=== PATIENT | male | born 1965 | race Caucasian/White ===

== ENCOUNTER → 2023-12-02 | Outpatient (CLI) | payer OTHER, SELFPAY ==
[2023-12-02 07:35] LABS: Misc Send Out* See Sep Rpt
== END | disposition home or self-care (01) ==
LOC: COPL 07:15
PROVIDERS: PCP Family Medicine; Referring Provider Family Medicine; Visit Provider Family Medicine
DX: E11.65 Type 2 diabetes mellitus with hyperglycemia (principal)
CPT/HCPCS: 86337; 86341

== ENCOUNTER 2024-01-29 12:32 | Emergency (ER) | payer OTHER, SELFPAY ==
[2024-01-29 13:27] VITALS: BP 117/85; PULSE 105; RESP 17; TEMP 37.2; O2SAT 98; BMI 25.5
--- NOTE | 2024-01-29 13:31 | EDNOTE_ITS ---
ED Male Genitalurinary RME/HPI General Chief complaint: Urogenital-Male Stated complaint: CATHETER PAIN Time Seen by Provider: 01/29/24 12:38 Arrival date/time: 01/29/24 12:32 RME / HPI RME / HPI Narrative: 58-year-old male patient with significant history of BPH, awaiting prostate surgery, came in for evaluation regarding discomfort with Rosen catheter. Patient's been having discomfort for several days, described as dull ache, sever ity moderate. Patient told me that he is fully catheter give him discomfort sometimes urine also is leaking around the meatus. Denies any fever denies any other complaints no medications taken prior travel. Related Data Home Medications ?Medication ?Instructions ?Recorded ?Confirmed metformin 500 mg tablet 500 mg PO BID 02/22/19 03/01/19 Previous Rx's ?Medication ?Instructions ?Recorded docusate sodium 100 mg capsule 100 mg PO BID #40 caps 06/08/20 (DOK) hydrocodone 5 mg-acetaminophen 325 1 tab PO Q6HR PRN pain (scale 06/08/20 mg tablet score 7-10) #20 tabs ibuprofen 600 mg tablet 600 mg PO Q8H PRN pain (scale 06/08/20 score 4-6) #15 tabs diazepam 5 mg tablet (Valium) 5 mg PO BID PRN muscle spasm #7 01/13/21 tabs methylprednisolone 4 mg tablets in 4 mg PO .as directed #21 tabs 01/13/21 a dose pack (Medrol (Fabián)) naproxen 500 mg tablet 500 mg PO BID PRN pain #30 tabs 01/13/21 tamsulosin 0.4 mg capsule (Flomax) 0.4 mg PO QDAY #30 caps 11/17/23 cefuroxime axetil 500 mg tablet 500 mg PO BID #14 tabs 01/29/24 Allergies Allergy/AdvReac Type Severity Reaction Status Date / Time Penicillins Allergy Severe Rash Verified 11/23/23 15:09 Review of Systems Review of Systems Narrative Review of Systems: Review of system reviewed and within normal limits except mentioned in HPI ED Exam Narrative Physical exam: VITAL SIGNS: Reviewed. GENERAL APPEARANCE: Alert and interactive, follows commands, no acute distress, HEAD AND FACE: Non-traumatic. ENT: PERRL, pink conjunctivitis, eyelid no trauma, Mucous membrane moist. NECK: Supple, nontender, no nuchal rigidity. CHEST: No tenderness, no crepitus, no paradoxical movement, no retractions. LUNGS: Clear, well ventilated, symmetric, no rales, no wheezing, no ronchi, no stridor, good breath sounds bilaterally. HEART: Regular rate, regular rhythm, no murmur, no gallops. ABDOMEN: Soft, positive bowel sounds, nondistended, no guarding, nontender, no rebound, no masses, RECTAL: Deferred. GENITAL: Rosen catheter, intact, no urine noted on the meatus, tubing dirty looking with dark-colored urine., No redness or swelling on the penis. NEUROLOGICAL: Gross motor function intact sensory function intact, Appropriate for age. MUSCULOSKELETAL: low back nontender, full range of motion. EXTREMITIES: Nontender, full range of motion. SKIN: Color pink, dry, no rash, no lacerations, no abrasions, no contusions. LYMPHATICS: Deferred. Course Quality Measures none Orders Category Date Time Status Rosen to [place] Routine Care 01/29/24 13:30 Ordered UA, C/S IF [Urinalysis, C/S if Indicated] Stat Lab 01/29/24 13:56 Completed Urine Culture Stat Lab 01/29/24 13:56 Received Ibuprofen Tab [Motrin Tab] Med 01/29/24 13:30 Discontinued 800 mg PO X1 ONE cefTRIAXone [Rocephin] 1,000 mg Med 01/29/24 14:52 Discontinued Lidocaine 1% 20 ml [Xylocaine 1% 20 ML] 2.1 ml IM X1 Vital Signs Vital signs: Vital Signs Temperature 98.9 F 01/29/24 13:27 Pulse Rate 105 H 01/29/24 13:27 Respiratory Rate 17 01/29/24 13:27 Blood Pressure 117/85 H 01/29/24 13:27 Pulse Oximetry (%) 98 01/29/24 13:27 Oxygen Delivery Method Room Air 01/29/24 13:27 Urogenital - Male MDM Narrative MDM Narrative:: Rosen catheter was repositioned, and patient told me that the pain is totally gone. Urinalysis showed UTI. Patient received ceftriaxone IM. Patient data External records reviewed:: None Clinical information provided by:: none Social determinants that could affect healthcare access:: none Patient has the following chronic illnesses:: BPH How is presenting disease/condition affected by chronic disease/condition?: exacerbated by Evaluation data The following diagnostics were reviewed and interpreted by me:: lab results Lab and/or radiology exams considered but not ordered:: None Interpretation Summary: Urinalysis positive for UTI Medications / Prescriptions Medications or Prescriptions considered but not ordered:: None Medication administrations:: Medication Administration History Discontinued Medications Ceftriaxone Sodium 1,000 mg/ (Lidocaine HCl 2.1 ml) 0 mg IM X1 ONE Stop: 01/29/24 14:53 Ibuprofen (Ibuprofen Tab 400 Mg Tablet) 800 mg PO X1 ONE Stop: 01/29/24 13:31 Last Admin: 01/29/24 14:38 Dose: 800 mg Documented By: Ceftriaxone IM IM, Motrin Consultations Consultation(s) initiated? (list below): No Diagnosis Urogenital Male Differential Diagnosis: urinary tract infection, urethritis, prostatitis and acute retention of urine Most likely diagnosis given after review of the tests above:: Rosen catheter problem, UTI Admission Indicated Admission indicated?: not indicated Admission Request Was there a request for admission?: No Disposition Plan Disposition Plan: Discharge Discharge Attestation Discharge Attestation: The patient was given an opportunity to ask questions and understood the discharge instructions. Discharge instructions specifically effects, indications for sooner follow up or return to the emergency department, and the expected course of current diagnosis. Patient condition: Stable Discharge Plan Plan Patient Disposition: HOME (Self Care) Disposition Comment: stable Prescriptions/Referrals Prescriptions/Med Rec: New cefuroxime axetil 500 mg tablet 500 mg PO BID Qty: 14 0RF No Action metformin 500 mg tablet 500 mg PO BID hydrocodone-acetaminophen 5-325 mg Tablet 1 tab PO Q6HR MDD 4 PRN (Reason: pain (scale score 7-10)) Qty: 20 0RF docusate sodium [DOK] 100 mg Capsule 100 mg PO BID Qty: 40 0RF ibuprofen 600 mg tablet 600 mg PO Q8H PRN (Reason: pain (scale score 4-6)) Qty: 15 0RF methylprednisolone [Medrol (Fabián)] 4 mg tablets,dose pack 4 mg PO .as directed Qty: 21 0RF naproxen 500 mg tablet 500 mg PO BID PRN (Reason: pain) Qty: 30 0RF diazepam [Valium] 5 mg tablet 5 mg PO BID PRN (Reason: muscle spasm) Qty: 7 0RF tamsulosin [Flomax] 0.4 mg capsule 0.4 mg PO QDAY Qty: 30 1RF Referrals: No Primary/Family,Physician [Primary Care Provider] - In 1 week Problem List Clinical Impression: Urinary tract infection, Rosen catheter problem Patient/Caregiver Discharge Instructions Discharge Activity: activity as tolerated Education Materials: Understanding Urinary Tract ... Additional Instructions: Thank you for the opportunity for serving you today. You are stable for discharged . You are advised to: Follow-up with your PCP in 1 to 2 days Return to ED for worsening of symptoms Increase oral fluids Take medication as prescribed Print Language: Faroese Stand Alone Forms: Ailyn Award Info., Patient Portal Info Letter PA/BUSINESS SYSTEMS ARCHITECT Supervising Physician PA/BUSINESS SYSTEMS ARCHITECT Supervising Physician: MD Jayden
[2024-01-29 14:05] LABS: Collection Type, Urine Clean Catch; Squamous Epithelial Cell,Urine 0 /hpf (0-5)
[2024-01-29 14:30] LABS: Bacteria,Urine 1+; Bilirubin,Urine Negative (Negative); Blood,Urine 3+ (Negative); Clarity,Urine Cloudy (Clear/Hazy); Culture Indicated,Urine Yes; Glucose, Urine 1+ (Negative); Ketones,Urine Negative (Negative); Leukocyte Esterase,Urine Positive (Negative); Nitrite,Urine Positive (Negative); Protein,Urine 3+ (Neg - Trace); RBC,Urine 1541 /hpf (0-3); Specific Gravity,Urine 1.027 (1.001-1.035); Urobilinogen,Urine Negative mg/dL (0.0-1.0); WBC,Urine 20089 /hpf (0-5)
[2024-01-29 14:31] LABS: Color,Urine Lt Brown (Lt Yel-Yel)
[2024-01-29] MEDS: IBUPROFEN TAB 400 MG TABLET 800 MG PO (14:38)
[2024-01-29] MEDS: cefTRIAXone 1,000 MG, LIDOCAINE 1% 20 ML 2.1 ML IM (15:38)
== END 2024-01-29 16:08 | disposition home or self-care (01) ==
PROVIDERS: Nurse Practitioner Family; Emergency Provider Emergency Medicine
DX: T83.84XA Pain due to genitourinary prosthetic devices, implants and grafts, initial encounter (principal); N39.0 Urinary tract infection, site not specified; Y84.6 Urinary catheterization as the cause of abnormal reaction of the patient, or of later complication, without mention of misadventure at the time of the procedure
CPT/HCPCS: 81001; 87077; 87086; 87186; 96372; 99283; J0696; J3490; A9270

== ENCOUNTER → 2024-02-18 | Outpatient (CLI) | payer OTHER, SELFPAY ==
[2024-02-18 08:14] LABS: Collection Type, Urine Clean Catch; Squamous Epithelial Cell,Urine 0 /hpf (0-5)
[2024-02-18 08:34] LABS: Basophils % (Auto) 1 % (0-2.5); Eosinophils # (Auto) 0.1 Thou/mm3 (0.0-0.5); Eosinophils % (Auto) 2 % (0-10); Hematocrit 43.3 % (41.0-53.0); Immature Granulocytes % (Auto) 0 % (0-0); Immature Granulocytes Auto 0.02 Thou/mm3 (0.00-0.00); Lymphocytes # (Auto) 1.2 Thou/mm3 (1.0-4.8); Lymphocytes % (Auto) 19 % (10-50); Mean Corpuscular HGB Conc 34.6 g/dl (31.0-37.0); Mean Corpuscular Hemoglobin 28.5 pg (25.0-35.0); Mean Corpuscular Volume 82 fL (80-100); Monocytes # (Auto) 0.5 Thou/mm3 (0.0-0.8); Monocytes % (Auto) 7 % (0-12); Neutrophils # (Auto) 4.5 Thou/mm3 (1.8-7.7); Neutrophils % (Auto) 72 % (37-80); Nucleated Red Blood Cell % 0 /100 WBC (0); Platelet Count 225 Thou/mm3 (140-440); RDW Standard Deviation 37.2 fL (35.1-43.9); Red Blood Count 5.26 Miln/mm3 (4.50-5.90); White Blood Count 6.2 Thou/mm3 (3.8-10.6)
[2024-02-18 08:54] LABS: Alanine Aminotransferase 48 U/L (10-49); Albumin, Serum 4.1 gm/dL (3.4-4.8); Albumin/Globulin Ratio 1.6 (1.2-2.2); Alkaline Phosphatase 165 U/L (46-116); Anion Gap 7 (7-16); Aspartate Amino Transferase 19 U/L (0-34); BUN/Creatinine Ratio 18 Ratio (12-20); Bilirubin,Total 0.7 mg/dL (0.3-1.2); Blood Urea Nitrogen 18 mg/dL (9-23); Calcium 9.9 mg/dL (8.3-10.6); Calcium (Corrected) 9.9 mg/dL (8.5-10.1); Carbon Dioxide 29.6 mMol/L (20.0-31.0); Chloride 102 mMol/L (98-107); Globulin 2.5 gm/dL (2.3-3.5); Glucose 231 mg/dL (74-106); Osmolality,Calculated 286 (275-295); Potassium 4.6 mMol/L (3.4-5.1); Sodium 139 mMol/L (136-145); Total Protein 6.6 gm/dL (5.7-8.2); eGFR > 60 See Note
[2024-02-18 09:21] LABS: Bacteria,Urine 3+; Bilirubin,Urine Negative (Negative); Blood,Urine 3+ (Negative); Color,Urine Yellow (Lt Yel-Yel); Glucose, Urine 4+ (Negative); Ketones,Urine Negative (Negative); Leukocyte Esterase,Urine Positive (Negative); Nitrite,Urine Positive (Negative); Protein,Urine 1+ (Neg - Trace); RBC,Urine 257 /hpf (0-3); Specific Gravity,Urine 1.023 (1.001-1.035); Urobilinogen,Urine Negative mg/dL (0.0-1.0); WBC,Urine 2742 /hpf (0-5)
[2024-02-18 09:26] LABS: Clarity,Urine Cloudy (Clear/Hazy); Culture Indicated,Urine Yes
[2024-02-18 14:23] LABS: Glucose Estimated Average 258 mg/dL (80-131); Hemoglobin A1C 10.6 % Hgb (4.8-6.0)
== END | disposition home or self-care (01) ==
LOC: COPL 07:19
PROVIDERS: PCP Family Medicine; Referring Provider Family Medicine; Visit Provider Family Medicine
DX: E11.65 Type 2 diabetes mellitus with hyperglycemia (principal); N39.0 Urinary tract infection, site not specified; T83.511D Infection and inflammatory reaction due to indwelling urethral catheter, subsequent encounter
CPT/HCPCS: 36415; 80053; 81001; 83036; 85025; 87077; 87086; 87186

== ENCOUNTER 2024-02-21 13:04 | Emergency (ER) | payer OTHER, SELFPAY ==
[2024-02-21 14:11] VITALS: BP 125/81; PULSE 89; RESP 20; TEMP 36.9; O2SAT 97; BMI 26.4
--- NOTE | 2024-02-21 15:22 | PD.EDMALE ---
ED Male Genitalurinary RME/HPI General Chief complaint: Urogenital-Male Stated complaint: BURNING URINATION Time Seen by Provider: 02/21/24 15:03 Arrival date/time: 02/21/24 13:04 This is a 59-year-old male with a chronic Taylor catheter. Patient was diagnosed with a UTI approximately 3 weeks ago per patient. Patient states that no one changed his catheter last time. Patient states that his catheter johnson and need to be changed. Patient states that a couple days ago he had some cold sweats but no fever. Related Data Home Medications ?Medication ?Instructions ?Recorded ?Confirmed metformin 500 mg tablet 500 mg PO BID 02/22/19 03/01/19 Previous Rx's ?Medication ?Instructions ?Recorded docusate sodium 100 mg capsule 100 mg PO BID #40 caps 06/08/20 (DOK) hydrocodone 5 mg-acetaminophen 325 1 tab PO Q6HR PRN pain (scale 06/08/20 mg tablet score 7-10) #20 tabs ibuprofen 600 mg tablet 600 mg PO Q8H PRN pain (scale 06/08/20 score 4-6) #15 tabs diazepam 5 mg tablet (Valium) 5 mg PO BID PRN muscle spasm #7 01/13/21 tabs methylprednisolone 4 mg tablets in 4 mg PO .as directed #21 tabs 01/13/21 a dose pack (Medrol (Fabián)) naproxen 500 mg tablet 500 mg PO BID PRN pain #30 tabs 01/13/21 tamsulosin 0.4 mg capsule (Flomax) 0.4 mg PO QDAY #30 caps 11/17/23 cefuroxime axetil 500 mg tablet 500 mg PO BID #14 tabs 01/29/24 Allergies Allergy/AdvReac Type Severity Reaction Status Date / Time Penicillins Allergy Severe Rash Verified 02/22/24 12:54 Review of Systems Review of Systems Systems Reviewed: All systems reviewed, normal except as documented Past Medical History Past Medical History MUSCULOSKELETAL: Positive Fractures (Collar bone fx) ENDOCRINE: Positive Diabetes Mellitus Type 1 and Diabetes Mellitus Type 2 Social History SMOKING STATUS: Never smoker SUBSTANCE USE: does not use ED Exam General General appearance: Present alert and in no apparent distress Head Head exam: Present atraumatic Eye Eye exam: Present normal appearance, PERRL and EOMI ENT ENT exam: Present normal exam, normal oropharynx and mucous membranes moist Neck Neck exam: Present normal inspection, full ROM and trachea midline Chest Chest inspection: Present normal inspection and symmetric chest wall rise Respiratory Respiratory exam: Present other (breathing even and unlabored ) Cardiovascular Cardiovascular exam: Present regular rate and normal rhythm Abdominal Exam Abdominal exam: Present soft Extremities Exam Extremities exam: Present normal inspection and full ROM Back Exam Back exam: Present normal inspection and full ROM Neurological Exam Neurological exam: Present alert, oriented X3 and CN II-XII intact Psychiatric Psychiatric exam: Present normal affect and normal mood Skin Skin exam: Present warm, dry, intact and normal color Course Quality Measures none Orders Category Date Time Status Taylor [Urinary Catheter] QS Care 02/21/24 15:29 Completed Urinalysis, C/S if Indicated Stat Lab 02/21/24 15:50 Completed Urine Culture Stat Lab 02/21/24 15:50 Completed Lidocaine Jelly 2% Urojet [Xylocaine Jelly 2% Urojet] Med 02/21/24 15:16 Discontinued See Dose Instructions TOP X1 ONE cefTRIAXone [Rocephin] 1,000 mg Med 02/21/24 16:23 Discontinued Lidocaine 1% 20 ml [Xylocaine 1% 20 ML] 2.1 ml IM X1 Vital Signs Vital signs: Vital Signs Temperature 98.4 F 02/21/24 14:11 Pulse Rate 89 02/21/24 14:11 Respiratory Rate 20 02/21/24 14:11 Blood Pressure 125/81 02/21/24 14:11 Pulse Oximetry (%) 97 02/21/24 14:11 Oxygen Delivery Method Room Air 02/21/24 14:11 Urogenital - Male MDM Narrative MDM Narrative:: taylor catheter changed. new urine sample obtained and culture sent. Pt urine draining well. Pt states he will follow up with primary provider in 1-2 days.Come back to ED if symptoms change or worsen. Rocephin given. Pt sent home with antibiotics. Patient data External records reviewed:: [facility] previous records Clinical information provided by:: patient Social determinants that could affect healthcare access:: none Patient has the following chronic illnesses:: chronic urinary issues see hpi How is presenting disease/condition affected by chronic disease/condition?: exacerbated by Evaluation data The following diagnostics were reviewed and interpreted by me:: lab results Lab and/or radiology exams considered but not ordered:: none Interpretation Summary: see note Medications / Prescriptions Medications or Prescriptions considered but not ordered:: none Medication administrations:: Medication Administration History Discontinued Medications Ceftriaxone Sodium 1,000 mg/ (Lidocaine HCl 2.1 ml) 0 mg IM X1 ONE Stop: 02/21/24 16:24 Last Admin: 02/21/24 16:36 Dose: 2.1 mg Documented By: OA Lidocaine HCl (Lidocaine Jelly 2% (Urojet) 10 Ml Tube) 0 ml TOP X1 ONE Stop: 02/21/24 15:17 Last Admin: 02/21/24 16:14 Dose: 10 ml Documented By: OA see mar Consultations Consultation(s) initiated? (list below): No Diagnosis Urogenital Male Differential Diagnosis: urinary tract infection, prostatitis, acute retention of urine and other (kidney stone ) Most likely diagnosis given after review of the tests above:: uti Admission Indicated Admission indicated?: not indicated Admission Request Was there a request for admission?: No Disposition Plan Disposition Plan: Discharge Discharge Attestation Discharge Attestation: The patient and all family members were given an opportunity to ask questions and understood the discharge instructions. Discharge instructions specifically effects, indications for sooner follow up or return to the emergency department, and the expected course of current diagnosis. Patient condition: Stable Discharge Plan Plan Patient Disposition: HOME (Self Care) Patient condition on transfer: Stable Prescriptions/Referrals Prescriptions/Med Rec: No Action metformin 500 mg tablet 500 mg PO BID hydrocodone-acetaminophen 5-325 mg Tablet 1 tab PO Q6HR MDD 4 PRN (Reason: pain (scale score 7-10)) Qty: 20 0RF docusate sodium [DOK] 100 mg Capsule 100 mg PO BID Qty: 40 0RF ibuprofen 600 mg tablet 600 mg PO Q8H PRN (Reason: pain (scale score 4-6)) Qty: 15 0RF methylprednisolone [Medrol (Fabián)] 4 mg tablets,dose pack 4 mg PO .as directed Qty: 21 0RF naproxen 500 mg tablet 500 mg PO BID PRN (Reason: pain) Qty: 30 0RF diazepam [Valium] 5 mg tablet 5 mg PO BID PRN (Reason: muscle spasm) Qty: 7 0RF tamsulosin [Flomax] 0.4 mg capsule 0.4 mg PO QDAY Qty: 30 1RF cefuroxime axetil 500 mg tablet 500 mg PO BID Qty: 14 0RF Referrals: Patel Marshall MD [Primary Care Provider] - In 1 week Problem List Clinical Impression: Urinary tract infection, Chronic indwelling Taylor catheter Patient/Caregiver Discharge Instructions Discharge Activity: activity as tolerated Education Materials: ED Taylor Catheter, Care, ED Hematuria, ED Bladder Infection, Male (Adult) Additional Instructions: Please follow-up with primary provider in 1 to 2 days. Come back to the emergency room if symptoms change or worsen. Print Language: Surinamese Stand Alone Forms: Ailyn Award Info., Patient Portal Info Letter PA/ASSEMBLY DETAILER Supervising Physician PA/ASSEMBLY DETAILER Supervising Physician: [email or web address]
[2024-02-21 15:55] LABS: Collection Type, Urine Voided; Squamous Epithelial Cell,Urine 0 /hpf (0-5)
[2024-02-21 16:08] LABS: Bilirubin,Urine Negative (Negative); Blood,Urine 3+ (Negative); Glucose, Urine 4+ (Negative); Ketones,Urine Negative (Negative); Leukocyte Esterase,Urine Positive (Negative); Nitrite,Urine Positive (Negative); PH,Urine 5.5 (5.0-7.0); Protein,Urine 2+ (Neg - Trace); RBC,Urine 2060 /hpf (0-3); Urobilinogen,Urine Negative mg/dL (0.0-1.0); WBC,Urine 2284 /hpf (0-5)
[2024-02-21 16:09] LABS: Clarity,Urine Turbid (Clear/Hazy); Color,Urine Yellow (Lt Yel-Yel)
[2024-02-21 16:10] LABS: Culture Indicated,Urine Yes
[2024-02-21] MEDS: LIDOCAINE JELLY 2% (Urojet) 10 ML TUBE TOP (16:14)
[2024-02-21] MEDS: cefTRIAXone 1,000 MG, LIDOCAINE 1% 20 ML 2.1 ML IM (16:36)
== END 2024-02-21 17:44 | disposition home or self-care (01) ==
PROVIDERS: Nurse Practitioner Family; Emergency Provider Emergency Medicine; PCP Anesthesiology
DX: N39.0 Urinary tract infection, site not specified (principal)
CPT/HCPCS: 51702; 81001; 87077; 87086; 87186; 96372; 99283; J0696; J3490

== ENCOUNTER 2024-02-22 12:52 | Emergency (ER) | payer OTHER, SELFPAY ==
[2024-02-22 13:12] VITALS: BP 132/71; PULSE 86; RESP 18; TEMP 36.9; O2SAT 98; BMI 26.4
--- NOTE | 2024-02-22 13:32 | XR_ITS ---
Examination: CT abdomen and pelvis without contrast. Coronal 3-D reconstructions. Sagittal 2-D reconstructions. Date and time of exam:February 22, 2024 1442 hours Comparison 11/17/2023 INDICATIONS: Onset bilateral flank pain and hematuria today CTDI: vol (mGy): 7.03 DLP: (mGycm): 427 Technique: Axial images of the abdomen have been obtained, 3 mm slice thickness Intravenous contrast material has not been administered. Low dose protocols were performed. One or more of the following dose reduction techniques were used; automated exposure control, adjustment of the mA and/or KV according to patient size, use of iterative reconstruction technique. Findings: No focal liver or splenic lesion No gallstones No pancreatic or adrenal mass No renal or ureteral calculi, no hydronephrosis Aorta normal size Absent appendix No bowel obstruction Colonic diverticulosis Radiodensity in the urinary bladder consistent with blood clot with thickening of the urinary bladder wall up to 8 mm Significant prostatomegaly transverse dimension 5.0 cm Significant osteopenia with advanced disc narrowing L5-S1 IMPRESSION: No renal or ureteral calculi, no hydronephrosis Radiodensity in the urinary bladder consistent with blood clot, clinical correlation advised Thickening of the urinary bladder wall up to 8 mm, differential would include cystitis as well as early urinary tract outflow obstruction secondary to prostatomegaly Significant prostatomegaly, transverse dimension 5.0 cm
--- NOTE | 2024-02-22 13:33 | PD.EDRME ---
Rapid Medical Screening Exam RME Arrival date/time: 02/22/24 12:52 59-year-old male presents to the emergency department complains of hematuria patient has catheter in place Chief Complaint: Urogenital-Male Time Seen by Provider: 02/22/24 13:18 Vital signs: Vital Signs Temperature 98.5 F 02/22/24 13:12 Pulse Rate 86 02/22/24 13:12 Respiratory Rate 18 02/22/24 13:12 Blood Pressure 132/71 H 02/22/24 13:12 Pulse Oximetry (%) 98 02/22/24 13:12 Oxygen Delivery Method Room Air 02/22/24 13:12
[2024-02-22 14:03] LABS: Basophils # (Auto) 0.1 Thou/mm3 (0.0-0.2); Basophils % (Auto) 1 % (0-2.5); Eosinophils # (Auto) 0.1 Thou/mm3 (0.0-0.5); Eosinophils % (Auto) 1 % (0-10); Hematocrit 46.2 % (41.0-53.0); Immature Granulocytes % (Auto) 0 % (0-0); Immature Granulocytes Auto 0.03 Thou/mm3 (0.00-0.00); Lymphocytes # (Auto) 1.2 Thou/mm3 (1.0-4.8); Lymphocytes % (Auto) 14 % (10-50); Mean Corpuscular HGB Conc 34.6 g/dl (31.0-37.0); Mean Corpuscular Hemoglobin 28.5 pg (25.0-35.0); Mean Corpuscular Volume 82 fL (80-100); Monocytes # (Auto) 0.5 Thou/mm3 (0.0-0.8); Monocytes % (Auto) 6 % (0-12); Neutrophils # (Auto) 6.7 Thou/mm3 (1.8-7.7); Neutrophils % (Auto) 78 % (37-80); Nucleated Red Blood Cell % 0 /100 WBC (0); Platelet Count 219 Thou/mm3 (140-440); Red Blood Count 5.61 Miln/mm3 (4.50-5.90); White Blood Count 8.6 Thou/mm3 (3.8-10.6)
[2024-02-22 14:16] LABS: Collection Type, Urine Clean Catch; Squamous Epithelial Cell,Urine 0 /hpf (0-5)
[2024-02-22 14:30] LABS: Alanine Aminotransferase 35 U/L (10-49); Albumin, Serum 4.9 gm/dL (3.4-4.8); Albumin/Globulin Ratio 1.6 (1.2-2.2); Alkaline Phosphatase 162 U/L (46-116); Anion Gap 7 (7-16); Aspartate Amino Transferase 25 U/L (0-34); BUN/Creatinine Ratio 15 Ratio (12-20); Bilirubin,Total 0.6 mg/dL (0.3-1.2); Blood Urea Nitrogen 17 mg/dL (9-23); Carbon Dioxide 29.4 mMol/L (20.0-31.0); Chloride 98 mMol/L (98-107); Creatinine (Component) 1.1 mg/dL (0.6-1.3); Estimated Creatinine Clearance 79.7 mL/min (>60); Globulin 3.1 gm/dL (2.3-3.5); Glucose 269 mg/dL (74-106); Lipase 161 U/L (12-53); Osmolality,Calculated 278 (275-295); Potassium 4.3 mMol/L (3.4-5.1); Sodium 134 mMol/L (136-145); eGFR > 60 See Note
[2024-02-22 14:33] LABS: Bilirubin,Urine Negative (Negative); Blood,Urine 3+ (Negative); Clarity,Urine Turbid (Clear/Hazy); Glucose, Urine 3+ (Negative); Ketones,Urine Negative (Negative); Leukocyte Esterase,Urine Positive (Negative); Nitrite,Urine Negative (Negative); Protein,Urine 2+ (Neg - Trace); RBC,Urine 502 /hpf (0-3); Urobilinogen,Urine Negative mg/dL (0.0-1.0); WBC,Urine 476 /hpf (0-5)
[2024-02-22 14:34] LABS: Color,Urine Lt-Brown (Lt Yel-Yel); Culture Indicated,Urine Yes
--- NOTE | 2024-02-22 15:37 | PD.EDRME ---
Rapid Medical Screening Exam RME Arrival date/time: 02/22/24 12:52 02/22/24 12:52 59-year-old male presents to the emergency department complains of hematuria patient has catheter in place Chief Complaint: Urogenital-Male Time Seen by Provider: 02/22/24 13:18 Vital signs: Vital Signs Temperature 98.5 F 02/22/24 13:12 Pulse Rate 86 02/22/24 13:12 Respiratory Rate 18 02/22/24 13:12 Blood Pressure 132/71 H 02/22/24 13:12 Pulse Oximetry (%) 98 02/22/24 13:12 Oxygen Delivery Method Room Air 02/22/24 13:12 RME Narrative: 02/22/24 12:52 59-year-old male presents to the emergency department complains of hematuria patient has catheter in place
--- NOTE | 2024-02-22 15:51 | EDNOTE_ITS ---
ED Male Genitalurinary RME/HPI General Chief complaint: Urogenital-Male Stated complaint: BLOOD IN CATHETER, CHANGED CATH YESTERDAY HERE Time Seen by Provider: 02/22/24 13:18 Arrival date/time: 02/22/24 12:52 RME / HPI RME / HPI Narrative: 02/22/24 12:52 59-year-old male presents to the emergency department complains of hematuria patient has catheter in place DR. LARSON MAIN ED EVALUATION 59 year old male with history of urinary retention and taylor catheter in place presents to the ED for evaluation of hematuria today. States he has had his taylor changed monthly since placement 4 months ago and was evaluated here yesterday for a burning sensation and pain. States his taylor was changed and diagnosed with a UTI, prescribed antibiotics which he has yet to start. States this morning noted urine in the bag is wine red which concerned him. No other complaints reported. Patient denies fevers or chills. Patient states his urologist is Dr. Edward Moon located in [place], [place] Related Data Home Medications ?Medication ?Instructions ?Recorded ?Confirmed metformin 500 mg tablet 500 mg PO BID 02/22/19 03/01/19 Previous Rx's ?Medication ?Instructions ?Recorded docusate sodium 100 mg capsule 100 mg PO BID #40 caps 06/08/20 (DOK) hydrocodone 5 mg-acetaminophen 325 1 tab PO Q6HR PRN pain (scale 06/08/20 mg tablet score 7-10) #20 tabs ibuprofen 600 mg tablet 600 mg PO Q8H PRN pain (scale 06/08/20 score 4-6) #15 tabs diazepam 5 mg tablet (Valium) 5 mg PO BID PRN muscle spasm #7 01/13/21 tabs methylprednisolone 4 mg tablets in 4 mg PO .as directed #21 tabs 01/13/21 a dose pack (Medrol (Fabián)) naproxen 500 mg tablet 500 mg PO BID PRN pain #30 tabs 01/13/21 tamsulosin 0.4 mg capsule (Flomax) 0.4 mg PO QDAY #30 caps 11/17/23 cefuroxime axetil 500 mg tablet 500 mg PO BID #14 tabs 01/29/24 levofloxacin 750 mg tablet 750 mg PO QDAY 5 days #5 tabs 02/21/24 Allergies Allergy/AdvReac Type Severity Reaction Status Date / Time Penicillins Allergy Severe Rash Verified 02/22/24 12:54 Review of Systems Review of Systems Narrative Review of Systems: GEN: No fever, no chills, no weight loss EYES: No discharge, no visual changes, no pain HEENT: No ear pain, no congestion, no sore throat PULM: No shortness of breath, no cough, no congestion CV: No chest pain, no palpitations GI: No nausea, no vomiting, no diarrhea, no pain, no constipation : +blood in urine. No frequency, no urgency and no dysuria MUSC/SKEL No joint pain, no back pain SKIN: No rash PSYCH: No hallucinations, no depression HEME/LYMPH: No easy bleeding or bruising tendencies NEURO: No weakness, no headache Past Medical History Past Medical History MUSCULOSKELETAL: Positive Fractures (Collar bone fx) ENDOCRINE: Positive Diabetes Mellitus Type 1 and Diabetes Mellitus Type 2 Social History SMOKING STATUS: Never smoker SUBSTANCE USE: does not use ED Exam Narrative Physical exam: GENERAL APPEARANCE: Well hydrated, well nourished, in no acute distress. VITALS: All vitals were reviewed and the pulse ox is 98% on room air which is normal according to my interpretation. HEENT: Normocephalic, atramatic, EOMI, EACs are patent. There is no bulge or retraction. Throat without erythema or exudate. Moist oromucosa. No jaundice NECK: Supple, no JVD or bruits. CARDIOVASCULAR: Heart regular without S3-S4 or murmur. No rubs or gallops. LUNGS/CHEST: Clear to auscultation bilaterally. No rales, rhonchi, or wheezing. Normal inspection. ABDOMEN: Soft, nontender, no bladder distention, with normal bowel sounds. No pulsatile masses. No rebound, rigidity, or guarding. No incarcerated hernia. Normal inspection and palpation. : taylor catheter in place that is draining well, there is wine red colored urine in the taylor bag. EXTREMITIES: Normal inspection and palpation. No edema, clubbing, or cyanosis. Intact CSM SKIN: Warm and dry without rashes. Normal inspection. NEURO: Alert and oriented x3. Cranial nerves II through XII grossly intact. There are no other motor or sensory deficits noted. PSYCHIATRIC: Normal mood and affect. No psychosis Course Quality Measures none Orders Category Date Time Status CT abdomen pelvis wo con Stat Exams 02/22/24 13:32 Completed CBC Stat Lab 02/22/24 13:47 Completed Comprehensive Metabolic Panel Stat Lab 02/22/24 13:47 Completed Lipase Stat Lab 02/22/24 13:47 Completed UA, C/S IF [Urinalysis, C/S if Indicated] Stat Lab 02/22/24 13:55 Completed Urine Culture Stat Lab 02/22/24 13:55 Received Vital Signs Vital signs: Vital Signs Temperature 98.5 F 02/22/24 13:12 Pulse Rate 86 02/22/24 13:12 Respiratory Rate 18 02/22/24 13:12 Blood Pressure 132/71 H 02/22/24 13:12 Pulse Oximetry (%) 98 02/22/24 13:12 Oxygen Delivery Method Room Air 02/22/24 13:12 Urogenital - Male MDM Narrative MDM Narrative:: The patient just had his Taylor changed yesterday here. The urine is coming out looking like Mary wine. Otherwise the Taylor is still working well. He has no fever. No vomiting. No diarrhea. No bladder distention. Eating and drinking well. He is not taking any blood thinner. The patient does have a urologist in [facility] by the name of Edward Baldwin. On examination the Taylor bag was full of urine probably about 500 mL and it looks like a mary wine color. I do not see any clots in it. Patient said that he had a start Rocephin in the emergency department yesterday and prescription for antibiotics levofloxacin from here but he has not had a chance to pick it up. CBC unremarkable. CMP negative. Lipase 161. Blood sugar is 269. He is diabetic. UA is red in color. But there is no bacteria. CT abdomen and pelvic was reviewed and interpreted by me as follow: No free air. No free fluid. The Taylor tip is inside the bladder. The Taylor balloon is inside the bladder. There may be some blood clot inside the bladder. The bladder wall is thickened may be consistent with cystitis. Liver is normal. Bilateral kidneys are normal. No hydronephrosis. Normal spleen. Normal pancreas. In the emergency department tonight, our nurse is flushing his bladder to make sure that it is nice and clear before he goes home. He is instructed to garbage pick up man his antibiotic prescription. He is instructed to follow-up with his urologist. He is instructed to return the emergency department if condition worsens or if new symptoms develop especially fever. Patient data External records reviewed:: [facility] previous records (I reviewed yesterday's ED visit, 02/21/2024) Clinical information provided by:: patient Social determinants that could affect healthcare access:: none Patient has the following chronic illnesses:: Urinary retention, taylor catheter use x 4 months How is presenting disease/condition affected by chronic disease/condition?: exacerbated by Evaluation data The following diagnostics were reviewed and interpreted by me:: lab results and radiology exam(s) Lab and/or radiology exams considered but not ordered:: None Interpretation Summary: Ordering Physician: Kenny ALONSO),Cameron PERERA Date of Service: 02/22/24 Procedure(s): CT abdomen pelvis wo con Accession Number(s): [id number] cc: Nena Becker MD; Kenny ALONSO)Cameron NP; Kemal Erazo MD~ Examination: CT abdomen and pelvis without contrast. Coronal 3-D reconstructions. Sagittal 2-D reconstructions. Date and time of exam:February 22, 2024 1442 hours Comparison 11/17/2023 INDICATIONS: Onset bilateral flank pain and hematuria today CTDI: vol (mGy): 7.03 DLP: (mGycm): 427 Technique: Axial images of the abdomen have been obtained, 3 mm slice thickness Intravenous contrast material has not been administered. Low dose protocols were performed. One or more of the following dose reduction techniques were used; automated exposure control, adjustment of the mA and/or KV according to patient size, use of iterative reconstruction technique. Findings: No focal liver or splenic lesion No gallstones No pancreatic or adrenal mass No renal or ureteral calculi, no hydronephrosis Aorta normal size Absent appendix No bowel obstruction Colonic diverticulosis Radiodensity in the urinary bladder consistent with blood clot with thickening of the urinary bladder wall up to 8 mm Significant prostatomegaly transverse dimension 5.0 cm Significant osteopenia with advanced disc narrowing L5-S1 IMPRESSION: No renal or ureteral calculi, no hydronephrosis Radiodensity in the urinary bladder consistent with blood clot, clinical correlation advised Thickening of the urinary bladder wall up to 8 mm, differential would include cystitis as well as early urinary tract outflow obstruction secondary to prostatomegaly Significant prostatomegaly, transverse dimension 5.0 cm Dictated By: Kemal Erazo MD Signed By: <Electronically signed by Kemal Erazo MD in [place]> 02/22/24 1504 Medications / Prescriptions Medications or Prescriptions considered but not ordered:: None Medication administrations:: See above Consultations Consultation(s) initiated? (list below): No Diagnosis Urogenital Male Differential Diagnosis: urinary tract infection and other (Taylor catheter malfunction, hematuria ) Most likely diagnosis given after review of the tests above:: Hematuria Cystitis Indwelling Taylor catheter Admission Indicated Admission indicated?: not indicated Admission Request Was there a request for admission?: No Disposition Plan Disposition Plan: Discharge Discharge Attestation Discharge Attestation: The patient and all family members were given an opportunity to ask questions and understood the discharge instructions. Discharge instructions specifically effects, indications for sooner follow up or return to the emergency department, and the expected course of current diagnosis. Patient condition: Stable Discharge Plan Plan Patient Disposition: HOME (Self Care) Disposition Comment: Stable for [place] home Prescriptions/Referrals Prescriptions/Med Rec: No Action metformin 500 mg tablet 500 mg PO BID hydrocodone-acetaminophen 5-325 mg Tablet 1 tab PO Q6HR MDD 4 PRN (Reason: pain (scale score 7-10)) Qty: 20 0RF docusate sodium [DOK] 100 mg Capsule 100 mg PO BID Qty: 40 0RF ibuprofen 600 mg tablet 600 mg PO Q8H PRN (Reason: pain (scale score 4-6)) Qty: 15 0RF methylprednisolone [Medrol (Fabián)] 4 mg tablets,dose pack 4 mg PO .as directed Qty: 21 0RF naproxen 500 mg tablet 500 mg PO BID PRN (Reason: pain) Qty: 30 0RF diazepam [Valium] 5 mg tablet 5 mg PO BID PRN (Reason: muscle spasm) Qty: 7 0RF tamsulosin [Flomax] 0.4 mg capsule 0.4 mg PO QDAY Qty: 30 1RF cefuroxime axetil 500 mg tablet 500 mg PO BID Qty: 14 0RF levofloxacin 750 mg tablet 750 mg PO QDAY 5 Days Qty: 5 0RF Referrals: Nena Becker MD [Primary Care Provider] - In 1 week Problem List Clinical Impression: Hematuria, Cystitis, Indwelling Taylor catheter present Patient/Caregiver Discharge Instructions Education Materials: ED Taylor Catheter, Care, ED Hematuria, ED Bladder Infection, Male (Adult) Additional Instructions: Please garbage pick up man the prescription from yesterday. Drink a lot of fluid. Avoid aspirin. See your doctor preferably your urologist for recheck in 3 days. Return the nearest emergency department including this 1 if condition worsens or if new symptoms develop especially fever. Print Language: Romansh Stand Alone Forms: Ailyn Award Info., Patient Portal Info Letter
--- NOTE | 2024-02-22 16:25 | PC.NURSE ---
patient taylor irrigated small multiple clots removed, taylor is draining fine with no more clots
== END 2024-02-22 16:27 | disposition home or self-care (01) ==
PROVIDERS: Nurse Practitioner Primary Care; Emergency Provider Emergency Medicine; PCP Family Medicine
DX: N30.91 Cystitis, unspecified with hematuria (principal)
CPT/HCPCS: 36415; 74176; 80053; 81001; 83690; 85025; 87086; 99284

== ENCOUNTER 2024-04-07 11:39 | Emergency (ER) | payer MEDICAID, SELFPAY ==
[2024-04-07 11:51] VITALS: BP 113/76; PULSE 90; RESP 18; TEMP 37.1; O2SAT 95; BMI 25.4
--- NOTE | 2024-04-07 12:08 | EDNOTE_ITS ---
ED Male Genitalurinary RME/HPI General Chief complaint: Urogenital-Male Stated complaint: Rosen removal Time Seen by Provider: 04/07/24 12:09 Source: patient Arrival date/time: 04/07/24 11:39 59-year-old male with a history of BPH presents to the emergency room with a chief complaint of needing his Rosen catheter removed. Patient states 6 weeks ago they placed a catheter for urinary retention. Patient states he has not seen his urologist yet but states he wants the catheter removed and not replaced. Mode of arrival: ambulatory Limitations: no limitations Related Data Home Medications ?Medication ?Instructions ?Recorded ?Confirmed metformin 500 mg tablet 500 mg PO BID 02/22/1903/01 Previous Rx's ?Medication ?Instructions ?Recorded docusate sodium 100 mg capsule 100 mg PO BID #40 caps 06/08/20 (DOK) hydrocodone 5 mg-acetaminophen 325 1 tab PO Q6HR PRN p ain (scale 06/08/20 mg tablet score 7-10) #20 tabs ibuprofen 600 mg tablet 600 mg PO Q8H PRN pain (scal e 06/08/20 score 4-6) #15 tabs diazepam 5 mg tablet (Valium) 5 mg PO BID PRN muscle s pasm #7 01/13/21 tabs methylprednisolone 4 mg tablets in 4 mg PO .as directe d #21 tabs 01/13/21 a dose pack (Medrol (Fabián)) naproxen 500 mg tablet 500 mg PO BID PRN pain #30 t abs 01/13/21 tamsulosin 0.4 mg capsule (Flomax) 0.4 mg PO QDAY #30 caps 11/17/23 cefuroxime axetil 500 mg tablet 500 mg PO BID #14 tabs 01/29/24 tamsulosin 0.4 mg capsule (Flomax) 0.4 mg PO QDAY #20 caps 04/07/24 Allergies Allergy/AdvReac Type Severity Reaction Status Date / Time Penicillins Allergy Severe Rash Verified 02/22/24 12:54 Review of Systems Review of Systems Systems Reviewed: All systems reviewed, normal except as documented Constitutional Constitutional: Reports system reviewed and no additional complaints, except as documented, Denies fatigue, Denies fever(s), Denies headache(s) and Denies weakness Eyes Eyes: Reports system reviewed and no additional complaints, except as documented, Denies blurry vision and Denies change in vision ENT Ears, Nose, Mouth, and Throat: Reports system reviewed and no additional complaints, except as documented, Denies otalgia, Denies headache(s), Denies nasal congestion, Denies throat swelling and Denies vertigo Cardiovascular Cardiovascular: Reports system reviewed and no additional complaints, except as documented, Denies chest pain, Denies dyspnea and Denies dyspnea on exertion Respiratory Respiratory: Reports system reviewed and no additional complaints, except as documented, Denies chest congestion, Denies cough, Denies dyspnea, Denies dyspnea on exertion and Denies wheezing Gastrointestinal Gastrointestinal: Reports system reviewed and no additional complaints, except as documented, Denies abdominal pain, Denies cramping, Denies nausea and Denies vomiting Genitourinary Genitourinary: Reports system reviewed and no additional complaints, except as documented, Denies dysuria and Denies hematuria Musculoskeletal Musculoskeletal: Reports system reviewed and no additional complaints, except as documented and Denies back pain Integumentary/Breasts Skin/Breast: Reports system reviewed and no additional complaints, except as d ocumented and Denies wounds Neurologic Neurologic: Reports system reviewed and no additional complaints, except as documented, Denies confusion, Denies headache(s), Denies lack of coordination, Denies vertigo and Denies weakness Psychiatric Psychiatric: Reports system reviewed and no additional complaints, except as documented, Denies anxiety, Denies confusion, Denies depression, Denies paranoia, Denies suicidal ideation and Denies tactile hallucinations Endocrine Endocrine: Reports system reviewed and no additional complaints, except as documented and Denies fatigue Hematologic/Lymphatic Hematologic/Lymphatic: Reports system reviewed and no additional complaints, except as documented and Denies lymphadenopathy Allergic/Immunologic Allergic/Immunologic: Reports system reviewed and no additional complaints, except as documented, Denies throat swelling, Denies urticaria and Denies wheezing ED Exam General Limitations: Present no limitations General appearance: Present alert and in no apparent distress Head Head exam: Present atraumatic Eye Eye exam: Present normal appearance, PERRL and EOMI ENT ENT exam: Present normal exam, normal oropharynx and mucous membranes moist Neck Neck exam: Present normal inspection, full ROM and trachea midline Chest Chest inspection: Present normal inspection and symmetric chest wall rise Respiratory Respiratory exam: Present normal lung sounds bilaterally Cardiovascular Cardiovascular exam: Present regular rate, normal rhythm and normal heart sounds Abdominal Exam Abdominal exam: Present soft and normal bowel sounds exam: Absent normal inspection, testicular tenderness, urethral discharge, scrotal swelling, normal testicular lie or circumcised Expanded Exam exam: Absent balanitis Extremities Exam Extremities exam: Present normal inspection and full ROM Back Exam Back exam: Present normal inspection and full ROM Neurological Exam Neurological exam: Present alert, oriented X3 and CN II-XII intact Psychiatric Psychiatric exam: Present normal affect and normal mood Skin Skin exam: Present warm, dry, intact and normal color Course Quality Measures none Orders Category Date Time Status Catheter [Urinary Catheter, Remove] ONCE Care 04/07/24 12:07 Completed Vital Signs Vital signs: Vital Signs Temperature 98.7 F 04/07/24 11:51 Pulse Rate 90 04/07/24 11:51 Respiratory Rate 18 04/07/24 11:51 Blood Pressure 113/76 04/07/24 11:51 Pulse Oximetry (%) 95 04/07/24 11:51 Oxygen Delivery Method Room Air 04/07/24 11:51 O2 saturation 95% within normal limits Urogenital - Male MDM Narrative MDM Narrative:: 59-year-old male with a history of BPH presents to the emergency room with a chief complaint of needing his Rosen catheter removed. Patient states 6 weeks ago they placed a catheter for urinary retention. Patient states he has not seen his urologist yet but states he wants the catheter removed and not replaced. Patient is hemodynamically stable and in no apparent distress. Physical examination shows a Rosen catheter and a leg bag. There is no erythema there is no discharge coming out of the urethra. There is no blood in the bag. Patient states 6 weeks ago they placed his urinary catheter due to acute urinary retention. The patient was supposed to follow-up with her urologist but due to insurance issues he has not been able to see 1. Patient states he is working on his insurance issues to be able to see his urologist. Patient presents today wanting the urinary catheter removed. Patient states he is urinating around the catheter sometimes and believes he no longer has urinary retention. Patient is adamant about removing the catheter and states he just wants to have it removed and if his symptoms get worse he will return to the emergency room for another placement of a catheter. Patient denies any dysuria and states he does not want any urine samples strictly just wants to the removal of his catheter Patient was discharged and educated to return if symptoms get worse and follow- up with his primary care provider as well as his urologist. Patient data External records reviewed:: [facility] previous records Clinical information provided by:: patient Social determinants that could affect healthcare access:: none Patient has the following chronic illnesses:: No chronic illness How is presenting disease/condition affected by chronic disease/condition?: no chronic disease Evaluation data The following diagnostics were reviewed and interpreted by me:: lab results and radiology exam(s) Lab and/or radiology exams considered but not ordered:: Labs and radiology exams considered and ordered Interpretation Summary: N/A Medications / Prescriptions Medications or Prescriptions considered but not ordered:: N/A Medication administrations:: N/A Consultations Consultation(s) initiated? (list below): No Diagnosis Urogenital Male Differential Diagnosis: other (Removal of Rosen catheter) Most likely diagnosis given after review of the tests above:: Removal of Rosen catheter Admission Indicated Admission indicated?: not indicated Admission Request Was there a request for admission?: No Disposition Plan Disposition Plan: Discharge Discharge Attestation Discharge Attestation: The patient and all family members were given an opportunity to ask questions and understood the discharge instructions. Discharge instructions specifically effects, indications for sooner follow up or return to the emergency department, and the expected course of current diagnosis. Patient condition: Stable Discharge Plan Plan Patient Disposition: HOME (Self Care) Disposition Comment: Stable Prescriptions/Referrals Prescriptions/Med Rec: New tamsulosin [Flomax] 0.4 mg capsule 0.4 mg PO QDAY Qty: 20 0RF No Action metformin 500 mg tablet 500 mg PO BID hydrocodone-acetaminophen 5-325 mg Tablet 1 tab PO Q6HR MDD 4 PRN (Reason: pain (scale score 7-10)) Qty: 20 0RF docusate sodium [DOK] 100 mg Capsule 100 mg PO BID Qty: 40 0RF ibuprofen 600 mg tablet 600 mg PO Q8H PRN (Reason: pain (scale score 4-6)) Qty: 15 0RF methylprednisolone [Medrol (Fabián)] 4 mg tablets,dose pack 4 mg PO .as directed Qty: 21 0RF naproxen 500 mg tablet 500 mg PO BID PRN (Reason: pain) Qty: 30 0RF diazepam [Valium] 5 mg tablet 5 mg PO BID PRN (Reason: muscle spasm) Qty: 7 0RF tamsulosin [Flomax] 0.4 mg capsule 0.4 mg PO QDAY Qty: 30 1RF cefuroxime axetil 500 mg tablet 500 mg PO BID Qty: 14 0RF Problem List Clinical Impression: Encounter for Rosen catheter removal Patient/Caregiver Discharge Instructions Additional Instructions: Please follow-up with primary care provider in the next 24 to 48 hours. You will need to begin another referral to a urologist to be seen for this issue. I removed your urinary catheter on your request. If you begin to develop urinary retention or any abdominal pain please return to the emergency room immediately For any evidence of worsening signs or symptoms please return to the emergency room Print Language: Romanian Stand Alone Forms: Ailyn Award Info., Patient Portal Info Letter PA/RETAIL GENERAL MANAGER Supervising Physician PA/SUKHWINDER Supervising Physician: Dr. KHANNA
== END 2024-04-07 13:30 | disposition home or self-care (01) ==
LOC: SERX 13:29
PROVIDERS: Emergency Provider Emergency Medicine; PCP Family Medicine
DX: Z46.6 Encounter for fitting and adjustment of urinary device (principal)
CPT/HCPCS: 99282

== ENCOUNTER → 2025-01-03 | Outpatient (CLI) | payer OTHER, SELFPAY ==
--- NOTE | 2025-01-03 08:30 | XR_ITS ---
EXAMINATION: PA chest single view TECHNIQUE: Upright PA chest single view Date and time: January 03, 2025, 0841 hours, comparison June 26, 2020 INDICATION: Coughing this morning FINDINGS: No significant cardiac enlargement. No pneumonia or pulmonary edema Mild osteopenia IMPRESSION: No pneumonia or pulmonary edema
[2025-01-03 09:18] LABS: Coccid Serology, CF (UCD)* See Sep Rpt
[2025-01-03 09:49] LABS: Basophils # (Auto) 0.0 Thou/mm3 (0.0-0.2); Basophils % (Auto) 1 % (0-2.5); Eosinophils # (Auto) 0.0 Thou/mm3 (0.0-0.5); Eosinophils % (Auto) 1 % (0-10); Hematocrit 44.4 % (41.0-53.0); Hemoglobin 15.6 g/dL (13.5-16.0); Immature Granulocytes Auto 0.01 Thou/mm3 (0.00-0.00); Lymphocytes # (Auto) 1.2 Thou/mm3 (1.0-4.8); Lymphocytes % (Auto) 20 % (10-50); Mean Corpuscular HGB Conc 35.1 g/dl (31.0-37.0); Mean Corpuscular Hemoglobin 29.7 pg (25.0-35.0); Mean Corpuscular Volume 84 fL (80-100); Monocytes # (Auto) 0.5 Thou/mm3 (0.0-0.8); Monocytes % (Auto) 8 % (0-12); Neutrophils # (Auto) 4.1 Thou/mm3 (1.8-7.7); Neutrophils % (Auto) 70 % (37-80); Nucleated Red Blood Cell # 0.00 Thou/mm3 (0.00-0.00); Nucleated Red Blood Cell % 0 /100 WBC (0); Platelet Count 195 Thou/mm3 (140-440); RDW Standard Deviation 37.1 fL (35.1-43.9); Red Blood Count 5.26 Miln/mm3 (4.50-5.90); White Blood Count 5.9 Thou/mm3 (3.8-10.6)
[2025-01-03 09:59] LABS: Glucose Estimated Average 280 mg/dL (80-131); Hemoglobin A1C 11.4 % Hgb (4.8-6.0)
[2025-01-03 10:01] LABS: Alanine Aminotransferase 24 U/L (10-49); Albumin, Serum 4.6 gm/dL (3.4-4.8); Albumin/Globulin Ratio 2.2 (1.2-2.2); Alkaline Phosphatase 123 U/L (46-116); Anion Gap 8 (7-16); Aspartate Amino Transferase 22 U/L (0-34); BUN/Creatinine Ratio 10 Ratio (12-20); Bilirubin,Total 0.9 mg/dL (0.3-1.2); Blood Urea Nitrogen 10 mg/dL (9-23); Calcium 9.4 mg/dL (8.3-10.6); Calcium (Corrected) 9.4 mg/dL (8.5-10.1); Carbon Dioxide 29.5 mMol/L (20.0-31.0); Cardiac Risk Estimate 3.8 RATIO (4.0-6.7); Chloride 104 mMol/L (98-107); Cholesterol 188 mg/dL (132-200); Creatinine (Component) 1.0 mg/dL (0.6-1.3); Globulin 2.1 gm/dL (2.3-3.5); Glucose 222 mg/dL (74-106); HDL Cholesterol 50 mg/dL (40-60); LDL Cholesterol,Calculated 121 mg/dL (0-130); Osmolality,Calculated 287 (275-295); Potassium 4.7 mMol/L (3.4-5.1); Sodium 141 mMol/L (136-145); Total Protein 6.7 gm/dL (5.7-8.2); Triglycerides 86 mg/dL (30-150); eGFR > 60 See Note
== END | disposition home or self-care (01) ==
LOC: CDIM 09:06 → COPL 09:09
PROVIDERS: PCP Anesthesiology; Referring Provider Anesthesiology; Visit Provider Radiology Diagnostic Radiology
DX: R05.8 Other specified cough (principal); E78.2 Mixed hyperlipidemia; E11.65 Type 2 diabetes mellitus with hyperglycemia
CPT/HCPCS: 36415; 71045; 80053; 80061; 83036; 85025; 86171